=== PATIENT | female | born 1970 | race African-American/Black ===

== ENCOUNTER 2020-12-17 08:01 | Day surgery (SDC) | payer OTHER ==
[2020-12-16 15:56] VITALS: BMI 33.2
[2020-12-17 09:57] VITALS: BP 105/63; PULSE 65; TEMP 97.1
== END 2020-12-17 10:05 | disposition home or self-care (01) ==
LOC: FASU-ENDO 08:01
PROVIDERS: ATTEND Internal Medicine Gastroenterology
PROC: 0DB78ZX Excision of Stomach, Pylorus, Via Natural or Artificial Opening Endoscopic, Diagnostic (ICD-10-PCS; 2020-12-17)
PROC: 0DJD8ZZ Inspection of Lower Intestinal Tract, Via Natural or Artificial Opening Endoscopic (ICD-10-PCS; principal; 2020-12-17 08:56)
DX: Z12.11 Encounter for screening for malignant neoplasm of colon (principal); K29.50 Unspecified chronic gastritis without bleeding; R12 Heartburn; Z98.0 Intestinal bypass and anastomosis status; Z98.84 Bariatric surgery status
CPT/HCPCS: 43239; G0121; 88305-TC; 88342-TC